=== PATIENT | male | born 1975 | race Two or more races ===

== ENCOUNTER 2025-02-15 05:00 | Inpatient (IN) | payer OTHER ==
[~2025-02-15] VITALS: Ht 180.3 cm; Wt 160.7 kg
[2025-02-15] VITALS (9 sets, daily range): BP systolic 146–182; BP diastolic 87–106; PULSE 58–87; RESP 12–18; TEMP 98.2–98.9; O2SAT 88–98
--- NOTE | 2025-02-15 05:15 | ED.PDOC ---
Altered Mental Status HPI Comments 49-year-old, morbidly obese male is brought in by ambulance from home for complaint of altered level of consciousness. Per EMS report, patient's spouse called after waking up to patient shaking and speaking incoherently, this morning. He is reported to have last been seen normal, yesterday, after vomiting a few times. Patient has only reported history of unspecified kidney disease. On scene, patient was noncompliant with EMS and had to be restrained. Vitals were noted to have been stable within normal limits. Blood glucose of 201. No further acute symptoms are reported. 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 Past Medical History Past Medical History (Other): Unspecified kidney disease Surgical History: Denies all surgeries Family History Family History: Unknown Social History Smoker: Non-Smoker Alcohol: Denies ETOH Use Drugs: Denies Drug Use Lives In: Home All Other Systems: Reviewed and Negative (Comprehensive systems review obtained and negative except for what is stated in the HPI.) Physical Exam General Appearance: Moderate Distress, Obese HEENT: Normal ENT Inspection, Pharynx Normal, TMs Normal Neck: Full Range of Motion, Non-Tender, Normal, Normal Inspection Respiratory: Chest Non-Tender, Lungs Clear, No Accessory Muscle Use, No Respiratory Distress, Normal Breath Sounds Cardiovascular: No Edema, No JVD, No Murmur, No Gallop, Normal Peripheral Pulses, Regular Rate/Rhythm Breast Exam: Deferred Gastrointestinal: No Organomegaly, Non Tender, No Pulsatile Mass, Normal Bowel Sounds, Soft Genitalia: Deferred Pelvic: Deferred Rectal: Deferred Extremities: No calf tenderness, Normal capillary refill, Normal inspection, Normal range of motion, Non-tender, No pedal edema Musculoskeletal : Apperance: Normal Neurologic: Disoriented, No Motor Deficits, No Sensory Deficits, Other (Confused) Cerebellar Function: NOT DONE Reflexes: NOT DONE Skin: Dry, Normal Color, Warm Peripheral Pulses: 3+ Radial (R), 3+ Radial (L) Lymphatic: No Adenopathy EKG EKG : Pulse Rate (adult): 95 [place]: Normal Cardiac Rhythm: NSR Block: None Hypertrophy: None ST: Normal Was a procedure done? Was a procedure done?: No Differential Diagnosis (ALOC) Differential Diagnosis: Dehydration, Encephalopathy, Sepsis, Hypoxemia, Seizure, CVA, Drug Overdose, ETOH Intoxication, Renal Failure X-Ray, Labs, Meds, VS Vital Signs Date Time Temp Pulse Resp B/P (MAP) Pulse Ox O2 Delivery O2 Flow Rate FiO2 02/15/25 05:15 95 02/15/25 05:06 98.1 97 20 176/118 (137) 94 98.1 02/15/25 05:00 95 Lab Test 02/15/25 05:10 Range/Units White Blood Count 15.3 H 4.4-10.8 10^3/uL Red Blood Count 5.52 4.5-5.90 10^6/uL Hemoglobin 16.2 13.5-17.5 g/dL Hematocrit 47.8 41.0-53.0 % Mean Corpuscular Volume 86.6 80.0-100.0 fL Mean Corpuscular Hemoglobin 29.3 28.0-32.0 pg Mean Corpuscular Hemoglobin Concent 33.9 32.0-36.0 g/dL Red Cell Distribution Width 12.8 11.8-14.3 % Platelet Count 351 140-450 10^3/uL Mean Platelet Volume 7.2 6.9-10.8 fL Neutrophils (%) (Auto) 89.0 H 37.0-80.0 % Lymphocytes (%) (Auto) 3.4 L 10.0-50.0 % Monocytes (%) (Auto) 6.3 0.0-12.0 % Eosinophils (%) (Auto) 0.0 0.0-7.0 % Basophils (%) (Auto) 1.3 0.0-2.0 % Neutrophils # (Auto) 13.7 H 1.6-8.6 10 ^3/uL Lymphocytes # (Auto) 0.5 0.4-5.4 10 ^3/uL Monocytes # (Auto) 1.0 0-1.3 10 ^3/uL Eosinophils # (Auto) 0 0-0.8 10 ^3/uL Basophils # (Auto) 0.2 0-0.2 10 ^3/uL Nucleated Red Blood Cells 0.0 % Prothrombin Time 10.5 9.3-11.8 sec Prothrombin Time INR 0.99 0.9-1.15 Activated Partial Thromboplast Time 25.6 24.5-34.5 SEC Sodium Level 143 136-145 mmol/L Potassium Level 4.1 3.5-5.1 mmol/L Chloride Level 104 98-107 mmol/L Carbon Dioxide Level 24 20-31 mmol/L Anion Gap 15 5-15 Blood Urea Nitrogen 46 H 9-23 mg/dL Creatinine 1.58 H 0.700-1.30 mg/dL Glomerular Filtration Rate Calc 53 >90 mL/min BUN/Creatinine Ratio 29.1 H 10.0-20.0 Serum Glucose 182 H 74-106 mg/dL Lactic Acid Level 4.9 *H 0.4-2.0 mmol/L Calcium Level 10.0 8.7-10.4 mg/dL Total Bilirubin 0.4 0.2-1.0 mg/dL Aspartate Amino Transferase (AST) 18 <34 U/L Alanine Aminotransferase (ALT) 15 7-40 U/L Alkaline Phosphatase 54 46-116 U/L Total Protein 6.6 5.7-8.2 g/dL Albumin 4.0 3.2-4.8 g/dL Current Medications Medications (Trade) Dose Ordered Sig/Violet Route Start Time Stop Time Status Last Admin Sodium Chloride 2,000 ml @ 1,000 mls/hr Q2H ONCE IV 02/15/25 05:15 02/15/25 07:14 02/15/25 05:48 Patient alert. WBC elevated. Possible sepsis. Hemoglobin within normal limits. Establish intravenous access. Was given fluids. Sepsis protocol. Lactic acid elevated. Was given antibiotics. Blood pressure slightly elevated pain Will monitor possibly will need labetalol. Explained to the patient. Continue monitoring. Time of 1ST Reevaluation: 05:30 Reevaluation 1ST: Unchanged Patient Education/Counseling: Other (Patient's altered) Family Education/Counseling: No Family Present Additional Information Previous visits reviewed: N/A The following tests were ordered, and results were reviewed by me: EKG, CT head without contrast, lactic acid reflux, blood culture, Accu-Chek, chest x-ray, UA, PT PTT, CMP, CBC Additional Information was gathered from interviewing the following independent historians: EMS I reviewed and agreed with the following test results read by other providers: CT head without contrast and chest x-ray I discussed treatment and results with medical personnel SEPSIS Sepsis Screen Physician Orders Urinalysis (02/15/25 05:04) Chest Portable (02/15/25 05:04) Accucheck (02/15/25 05:04) Blood Culture (02/15/25 05:04) Cefepime 1gm/ 50ml (Maxipime 1gm/50ml) (02/15/25 06:00) Sodium Chloride 0.9% (02/15/25 05:15) Head Without Contrast (02/15/25 05:06) Cefepime 1gm/ 50ml (Maxipime 1gm/50ml) (02/15/25 05:30) Vital Signs Date Time Temp Pulse Resp B/P (MAP) Pulse Ox O2 Delivery O2 Flow Rate FiO2 02/15/25 05:15 95 02/15/25 05:06 98.1 97 20 176/118 (137) 94 98.1 02/15/25 05:00 95 Laboratory Tests Test 02/15/25 05:10 Lactic Acid Level 4.9 mmol/L (0.4-2.0) *H White Blood Count 15.3 10^3/uL (4.4-10.8) H Medications Medications Dose Ordered Sig/Violet Route Start Time Stop Time Status Last Admin Dose Admin Sodium Chloride 2,000 ml @ 1,000 mls/hr Q2H ONCE IV 02/15/25 05:15 02/15/25 07:14 02/15/25 05:48 Departure 1 Departure Time of Disposition: 06:41 Impression: Primary Impression: Metabolic encephalopathy Additional Impression: Sepsis Qualified Codes: A41.9 - Sepsis, unspecified organism Disposition: ADMITTED INPATIENT Admit to: Med Surg Condition: Guarded Critical Care Note Critical Care Time?: Yes (90 min-critical care time only) Critical care comment: Continue to be altered Stability Stability form required: No Heart Score Heart Score: Heart Score Response (Comments) Value History N/A 0 EKG N/A 0 Age N/A 0 Risk Factors N/A 0 Troponin N/A 0 Total 0 I personally scribed for LISA BROWN MD ([email or web address]) on 02/15/25 at 05:15. Electronically submitted by Devin Smith [email or web address]). LISA BROWN MD Feb 15, 2025 05:15 MICHELLE TRACEY MD Feb 15, 2025 06:42
[2025-02-15] MEDS: SODIUM CHLORIDE 0.9% 2,000 ML IV ONE (05:48)
--- NOTE | 2025-02-15 05:57 | DVH ---
EXAM: XY CHEST PORTABLE HISTORY: ams COMPARISON: None TECHNIQUE: Portable upright AP view of the chest was performed. FINDINGS: There is mild central interstitial prominence. No pneumothorax or consolidative infiltrates. The hear t is not enlarged. IMPRESSION: The central interstitial prominence may be due to reactive airways disease or mild CHF. The lungs ar e otherwise clear.
--- NOTE | 2025-02-15 05:59 | DVH ---
EXAM: CT Head Without Intravenous Contrast CLINICAL INDICATION: ams TECHNIQUE: Axial computed tomography images of the head/brain without intravenous contrast. This CT exam was performed using one or more of the following dose reduction techniques: automated exposure control, adjustment of the mA and/or kV according to patient size, and/or use of iterative reconstru ction technique. CONTRAST: COMPARISON: No relevant prior studies available. FINDINGS: BRAIN AND EXTRA-AXIAL SPACES: No acute intracranial hemorrhage, midline shift or mass effect. If sy mptoms persist, further evaluation with MRI is recommended. No significant white matter disease. BONES/JOINTS: Unremarkable. No acute fracture. SOFT TISSUES: Unremarkable. SINUSES: Unremarkable as visualized. No acute sinusitis. MASTOID AIR CELLS: Unremarkable as visualized. No mastoid effusion. OTHER FINDINGS: Comparison None. IMPRESSION: No acute intracranial hemorrhage, midline shift or mass effect. If symptoms persist, further evaluat ion with MRI is recommended. HS:Y
[2025-02-15 06:06] LABS: Alanine Aminotransferase 15 U/L (7-40); Alkaline Phosphatase 54 U/L (46-116); Anion Gap 15 (5-15); Aspartate Aminotransferase 18 U/L (<34); BUN/Creatinine Ratio 29.1 (10.0-20.0); Basophils # (auto) 0.2 10 ^3/uL (0-0.2); Basophils % (auto) 1.3 % (0.0-2.0); Carbon Dioxide 24 mmol/L (20-31); Chloride 104 mmol/L (98-107); Eosinophils # (auto) 0 10 ^3/uL (0-0.8); Hematocrit 47.8 % (41.0-53.0); Hemoglobin 16.2 g/dL (13.5-17.5); Lymphocytes # (auto) 0.5 10 ^3/uL (0.4-5.4); Lymphocytes % (auto) 3.4 % (10.0-50.0); Mean Corpuscular Hemoglobin 29.3 pg (28.0-32.0); Mean Corpuscular Hgb Conc. 33.9 g/dL (32.0-36.0); Mean Corpuscular Volume 86.6 fL (80.0-100.0); Monocytes % (auto) 6.3 % (0.0-12.0); Neutrophils # (auto) 13.7 10 ^3/uL (1.6-8.6); Platelet Count (auto) 351 10^3/uL (140-450); Potassium 4.1 mmol/L (3.5-5.1); Red Blood Cells 5.52 10^6/uL (4.5-5.90); Red Cell Distribution Width 12.8 % (11.8-14.3); Sodium 143 mmol/L (136-145); Total Protein 6.6 g/dL (5.7-8.2); White Blood Cell 15.3 10^3/uL (4.4-10.8)
[2025-02-15 06:07] LABS: Bilirubin, Total 0.4 mg/dL (0.2-1.0)
[2025-02-15 06:13] LABS: INR 0.99 (0.9-1.15); Partial Thromboplastin Time 25.6 SEC (24.5-34.5); Prothrombin Time 10.5 sec (9.3-11.8)
--- NOTE | 2025-02-15 06:18 | ECG ---
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
[2025-02-15 06:23] LABS: Blood Urea Nitrogen 46 mg/dL (9-23); Glucose 182 mg/dL (74-106)
[2025-02-15 06:25] LABS: Lactic Acid w/Reflex 4.9 mmol/L (0.4-2.0)
[2025-02-15] MEDS: VANCOMYCIN 1GM/200ML PM 200 ML IV ONE (06:40)
[2025-02-15] MEDS: SODIUM CHLORIDE 0.9% 1,000 ML IV ONE ×3 (06:58→07:25)
[2025-02-15] MEDS: LABETALOL HCL 20 MG/4 ML VL IV ONE (07:16)
--- NOTE | 2025-02-15 09:05 | DVHINCON2 ---
Date of service: Feb 15, [address] Watkins Reason for Consultation Seizure History of Present Illness Mr. Encarnacion is a 49 years old left-handed gentleman with a history of chronic kidney failure, obesity, he was brought to the [facility] on 02/15/2025 with a chief company of seizure activity. At this time, he is alert, fully oriented, but he remembers going to bed and the next memory was waking up in the emergency room,, the history is obtained from his , his son is in the room with him Earlier this morning, his was awakened by bed shaking and found the patient was shaking all over body for 30-40 seconds, with blood in the mouth, and he did not wake up until the ambulance came over, and he was very confused, combative on waking up. There was no incontinence. He has never had similar problem before, has no spells confusion, symptoms olfactory/gustatory hallucination, he has a preemie, but he did not have major intracranial problem in her stage. He has no history of traumatic brain injury, intracranial infection, stroke, has no family history of seizure disorder After his doctor change his kidney medication, the patient has been having nausea, vomiting for 2-3 days, and he could not keep anything down. He keeps drinking water but we will through back in about 1 hour, he did not eat any food on 02/14/25. His more in the last few days His long history of very loud snoring, the family reports symptoms suggestive of sleep apnea, he reports he sleeps not always refreshing, he is tired in the afternoon, his Carol sleep apnea, and his family thinks he has sleep apnea, he has not had sleep evaluation yet WBC/HB/PLT/MCV, 02/15/2025: 15.3/16.2/351/86.6 BUN/CR, 02/15/2025: 46/1.58 Liver function tests, 02/15/2025: Unremarkable Lactic acid, 02/15/2025: 4.9, 2.9, CT head, 02/15/2025: No acute intracranial hemorrhage, midline shift or mass eff ect. If symptoms persist, further evaluation with MRI is recommended. Past Medical History Kidney disease, obesity Past Surgical History No major surgeries Family History Parkinson's disease, hepatitis-C Social History He was a tobacco smoke, but no history of drug or alcohol abuse Allergies: Coded Allergies: NO KNOWN ALLERGIES (Unverified , 02/15/25) Home Meds Reported Medications Atorvastatin Calcium (ATORVASTATIN CALCIUM) 20 Mg Tab, 1 TAB PO HS 02/15/25 Metolazone (Metolazone) 10 Mg Tab, 1 TAB PO DAILY 02/15/25 Prednisone (Prednisone) 5 Mg Tab, 1 TAB PO DAILY 02/15/25 Tacrolimus (Tacrolimus) 5 Mg Cap, 1 CAP PO BID 02/15/25 Bumetanide (Bumetanide) 2 Mg Tab, 1 TAB PO DAILY 02/15/25 Current Medications Current Medications Medications (Trade) Dose Ordered Sig/Violet Route PRN Reason Start Time Stop Time Status Last Admin Cefepime HCl 50 ml @ 12.5 mls/hr Q8HR IV 02/15/25 14:00 Review of Systems As above, the other systems are negative Vital Signs Vital Signs Date Time Temp Pulse Resp B/P (MAP) Pulse Ox O2 Delivery O2 Flow Rate FiO2 02/15/25 08:38 75 194/107 02/15/25 06:51 12 98 02/15/25 05:35 Room Air* 0 21 02/15/25 05:35 98.4 98.4 Physical Exam GENERAL EXAM: General: the patient is well developed and nourished. No acute distress. HEENT: Normocephalic, neck is supple, no carotid bruits. No mass. RESPIRATORY: Normal respiratory effort with symmetrical lung expansion. Lungs clear to auscultation. CARDIOVASCULAR: Regular rate and rhythm with no murmurs. S1, S2. ABDOMEN: Soft, nontender, normal bowel sound NEUROLOGICAL: MENTAL STATUS: Awake and alert. Oriented to person, place, time and general circumstances. Able to give personal history. SPEECH, LANGUAGE, HIGHER CORTICAL FUNCTION: no aphasia or dysathria. CRANIAL NERVES: #2: Intact visual watt to confrontation. The optic discs were sharp #3,4,6: Pupils are equal, round and reactive. EOMs full and conjugate. No nystagmus. #5: Facial sensation intact in all three divisions bilaterally. Mandibular strength intact. #7: Facial muscles symmetrical and strength intact. #8: Hearing grossly normal to voice. #9,10: Uvula and soft palate rise in the midline. Swallow and voice are normal. #11: Trapezius and sternomastoid strength intact bilaterally. #12: Tongue midline. No fasciculations or atrophy. SENSATION: Sensation to touch and pinprick is normal. MOTOR: Normal tone in the upper and lower extremity. Normal muscle bulk. No fasciculations. No abnormal movements or posturing. Muscle strength of the major groups in the upper extremities is 5/5. Muscle strength of the major groups in the lower extremities is 5/5. REFLEXES: Deep tendon reflexes normal and symmetrical. No pathological reflexes. CEREBELLAR/COORDINATION: Finger to noseis normal bilaterally. GAIT/STATION: deferred. Labs/Diagnostic Data Labs Test 02/15/25 08:47 02/15/25 07:06 02/15/25 05:10 Range/Units POC Glucose 123 H 70-106 mg/dl Lactic Acid Level 2.9 *H 0.4-2.0 mmol/L White Blood Count 15.3 H 4.4-10.8 10^3/uL Red Blood Count 5.52 4.5-5.90 10^6/uL Hemoglobin 16.2 13.5-17.5 g/dL Hematocrit 47.8 41.0-53.0 % Mean Corpuscular Volume 86.6 80.0-100.0 fL Mean Corpuscular Hemoglobin 29.3 28.0-32.0 pg Mean Corpuscular Hemoglobin Concent 33.9 32.0-36.0 g/dL Red Cell Distribution Width 12.8 11.8-14.3 % Platelet Count 351 140-450 10^3/uL Mean Platelet Volume 7.2 6.9-10.8 fL Neutrophils (%) (Auto) 89.0 H 37.0-80.0 % Lymphocytes (%) (Auto) 3.4 L 10.0-50.0 % Monocytes (%) (Auto) 6.3 0.0-12.0 % Eosinophils (%) (Auto) 0.0 0.0-7.0 % Basophils (%) (Auto) 1.3 0.0-2.0 % Neutrophils # (Auto) 13.7 H 1.6-8.6 10 ^3/uL Lymphocytes # (Auto) 0.5 0.4-5.4 10 ^3/uL Monocytes # (Auto) 1.0 0-1.3 10 ^3/uL Eosinophils # (Auto) 0 0-0.8 10 ^3/uL Basophils # (Auto) 0.2 0-0.2 10 ^3/uL Nucleated Red Blood Cells 0.0 % Prothrombin Time 10.5 9.3-11.8 sec Prothrombin Time INR 0.99 0.9-1.15 Activated Partial Thromboplast Time 25.6 24.5-34.5 SEC Sodium Level 143 136-145 mmol/L Potassium Level 4.1 3.5-5.1 mmol/L Chloride Level 104 98-107 mmol/L Carbon Dioxide Level 24 20-31 mmol/L Anion Gap 15 5-15 Blood Urea Nitrogen 46 H 9-23 mg/dL Creatinine 1.58 H 0.700-1.30 mg/dL Glomerular Filtration Rate Calc 53 >90 mL/min BUN/Creatinine Ratio 29.1 H 10.0-20.0 Serum Glucose 182 H 74-106 mg/dL Calcium Level 10.0 8.7-10.4 mg/dL Total Bilirubin 0.4 0.2-1.0 mg/dL Aspartate Amino Transferase (AST) 18 <34 U/L Alanine Aminotransferase (ALT) 15 7-40 U/L Alkaline Phosphatase 54 46-116 U/L B-Type Natriuretic Peptide 133.67 0-100 pg/mL Total Protein 6.6 5.7-8.2 g/dL Albumin 4.0 3.2-4.8 g/dL Assessment New onset generalized tonic-clonic seizure ? Secondary to nausea, vomiting/dehydration Obesity Sleep-related breathing disorder Plan/Recommendation Monitoring Supportive treatment Telemetry EEG MRI brain scan Ativan for seizure breakthrough Consider preventive seizure treatment if indicated later A trial of APAP in the hospital Weight control Further address his sleep-related breathing disorder as outpatient Has been advised not to drive and he is cleared DMV report in the chart Progress: Poor This medical document was created using an electronic medical record system with [employer] dictation system. Although this document has been carefully reviewed, there may still be some phonetic and typographical errors. These areas are purely typographical due to imperfections of the software programs, and do not reflect any compromise in the patient's medical care. Plan discussed with: Patient, Spouse, Son, Other JOHAN VAZQUEZ MD Feb 15, 2025 09:05
[2025-02-15] MEDS: CEFEPIME 1GM/ 50ML 50 ML IV ONE (09:10)
[2025-02-15] MEDS ORDERED: TACR5CAP3 PO (09:43)
[2025-02-15] MEDS ORDERED: METO10TA7 PO (09:43)
[2025-02-15] MEDS ORDERED: PRE5T PO (09:43)
[2025-02-15] MEDS ORDERED: ATOR20TA50 PO (09:43)
[2025-02-15] MEDS ORDERED: BUME2TAB5 PO (09:43)
[2025-02-15 09:45] LABS: Urine Bacteria FEW /hpf (None Seen); Urine Blood 2+ /uL (Negative); Urine Clarity Clear (Clear); Urine Color Light-Yellow (Yellow); Urine Hyaline Cast FEW /lpf (0 - 2); Urine Mucus FEW (None Seen); Urine Protein, UAD 3+ (Negative); Urine Specific Gravity 1.025 (1.001-1.035); Urine Squamous Epithelial Cell FEW /hpf (<5); Urine Urobilinogen Normal (Negative); Urine WBC 2 /HPF (0-3)
[2025-02-15] MEDS ORDERED: NITROGLYCERIN 0.4 MG SL TAB SL PRN (09:45)
[2025-02-15] MEDS ORDERED: DOCUSATE SOD 100 MG CAP PO PRN (09:45)
[2025-02-15] MEDS ORDERED: MORPHINE SULFATE INJ 2 MG/ml SYRG IV PRN (09:45)
[2025-02-15] MEDS: amLODIPine BESYLATE 5 MG TAB PO SCH (10:00)
--- NOTE | 2025-02-15 10:05 | DVHHP2 ---
History of Present Illness Reason for Visit: [facility] History of Present Illness Giovanni Oakley is a 49-year-old male with past medical history of membranous nephropathy, who was brought to the hospital by EMS after having a seizure. Per the patient's , she was awoken up about 0200 to him having a seizure in bed. He has no history of seizures. She states after the seizure was over he was confused, not able to speak correctly, and combative with EMS. At my time of assessment he is alert and oriented, and does not remember the event. He does have trauma to his tongue and some dried blood on the side of his mouth from the event. Patient states his special procedures nurse recently changed his medications and he has been nauseated and vomiting for the past 3 days. He contributes it to his new medications. Patient's blood pressure is uncontrolled while in the ER. He states his blood pressure has never been a problem and he dose not take any medications for it at home, but he was told his new medications could make his blood pressure increase. Recently, the patient was seen at a urgent care due to right foot swelling. He was given an antibiotic, pain medications, and his prednisone was increased. The swelling, and redness in his foot has almost resolved, he has almost completed his course of medications. Denies any sick contact, chest pain, cough, fever, shortness of breath, or diarrhea. Renal/: Chronic renal insuff Lives: with Family Domestic Violence: Neg Review of Systems Constitutional: No: Fever, Chills, Sweats, Weakness, Malaise, Other Eyes: No: Pain, Vision change, Conjunctivae inflammation, Eyelid inflammation, Other, Redness ENT: No: Ear pain, Ear discharge, Nose pain, Nose discharge, Nose congestion, Mouth pain, Mouth swelling, Throat pain, Throat swelling, Other Respiratory: No: Cough, Dry, Shortness of breath, SOB with excertion, Wheezing, Hemoptysis, Pleuritic Pain, Sputum, Wheezing, Other Cardiovascular: No: Chest Pain, Palpitations, Orthopnea, Paroxysmal Noc. Dyspnea, Edema, Lt Headedness, Other Gastrointestinal: No: Nausea, Vomiting, Abdominal Pain, Diarrhea, Constipation, Melena, Hematochezia, Other Genitourinary: No Dysuria, No Frequency, No Incontinence, No Hematuria, No Retention, No Other Musculoskeletal: No: other, neck pain, shoulder pain, arm pain, back pain, hand pain, leg pain, foot pain Skin: No: Rash, Lesions, Jaundice, Bruising, Other Neurological: Weakness, Incoordination, Change in speech, Confusion, Seizures; No: Numbness, Other Allergies: Coded Allergies: NO KNOWN ALLERGIES (Unverified , 02/15/25) Medications Current Medications Medications Dose Ordered Sig/Violet Route Start Time Stop Time Status Last Admin Dose Admin Cefepime HCl 50 ml @ 12.5 mls/hr Q8HR IV 02/15/25 14:00 Exam Vital Signs Vital Signs Date Time Temp Pulse Resp B/P (MAP) Pulse Ox O2 Delivery O2 Flow Rate FiO2 02/15/25 08:38 75 194/107 02/15/25 06:51 12 98 02/15/25 05:35 Room Air* 0 21 02/15/25 05:35 98.4 98.4 General Appearance: Alert, Oriented X3, Cooperative, mild distress HEENT: Atraumatic, PERRLA Respiratory: Clear to auscultation, Normal air movement Cardiovascular: Regular rate, Normal S1, Normal S2, No murmurs Abdominal: Normal bowel sounds, Soft, No tenderness, No hepatospenomegaly Extremities: No clubbing, No cyanosis, Normal pulses, No tenderness/swelling, Other (mild bialteral pedal edema) Skin: No rashes, No breakdown, No significant lesion Neuro: Normal speech, Other (Has not ambulated since having seizure this morning) Psych/Mental Status: Mental status NL, Mood NL Labs/Xrays Labs Test 02/15/25 08:54 02/15/25 08:47 02/15/25 07:06 02/15/25 05:10 Range/Units POC Glucose 123 H 70-106 mg/dl Lactic Acid Level 2.9 *H 0.4-2.0 mmol/L White Blood Count 15.3 H 4.4-10.8 10^3/uL Red Blood Count 5.52 4.5-5.90 10^6/uL Hemoglobin 16.2 13.5-17.5 g/dL Hematocrit 47.8 41.0-53.0 % Mean Corpuscular Volume 86.6 80.0-100.0 fL Mean Corpuscular Hemoglobin 29.3 28.0-32.0 pg Mean Corpuscular Hemoglobin Concent 33.9 32.0-36.0 g/dL Red Cell Distribution Width 12.8 11.8-14.3 % Platelet Count 351 140-450 10^3/uL Mean Platelet Volume 7.2 6.9-10.8 fL Neutrophils (%) (Auto) 89.0 H 37.0-80.0 % Lymphocytes (%) (Auto) 3.4 L 10.0-50.0 % Monocytes (%) (Auto) 6.3 0.0-12.0 % Eosinophils (%) (Auto) 0.0 0.0-7.0 % Basophils (%) (Auto) 1.3 0.0-2.0 % Neutrophils # (Auto) 13.7 H 1.6-8.6 10 ^3/uL Lymphocytes # (Auto) 0.5 0.4-5.4 10 ^3/uL Monocytes # (Auto) 1.0 0-1.3 10 ^3/uL Eosinophils # (Auto) 0 0-0.8 10 ^3/uL Basophils # (Auto) 0.2 0-0.2 10 ^3/uL Nucleated Red Blood Cells 0.0 % Prothrombin Time 10.5 9.3-11.8 sec Prothrombin Time INR 0.99 0.9-1.15 Activated Partial Thromboplast Time 25.6 24.5-34.5 SEC Sodium Level 143 136-145 mmol/L Potassium Level 4.1 3.5-5.1 mmol/L Chloride Level 104 98-107 mmol/L Carbon Dioxide Level 24 20-31 mmol/L Anion Gap 15 5-15 Blood Urea Nitrogen 46 H 9-23 mg/dL Creatinine 1.58 H 0.700-1.30 mg/dL Glomerular Filtration Rate Calc 53 >90 mL/min BUN/Creatinine Ratio 29.1 H 10.0-20.0 Serum Glucose 182 H 74-106 mg/dL Calcium Level 10.0 8.7-10.4 mg/dL Total Bilirubin 0.4 0.2-1.0 mg/dL Aspartate Amino Transferase (AST) 18 <34 U/L Alanine Aminotransferase (ALT) 15 7-40 U/L Alkaline Phosphatase 54 46-116 U/L B-Type Natriuretic Peptide 133.67 0-100 pg/mL Total Protein 6.6 5.7-8.2 g/dL Albumin 4.0 3.2-4.8 g/dL EXAM: XY CHEST PORTABLE FINDINGS: There is mild central interstitial prominence. No pneumothorax or consolidative infiltrates. The heart is not enlarged. IMPRESSION: The central interstitial prominence may be due to reactive airways disease or mild CHF. The lungs are otherwise clear. EXAM: CT Head Without Intravenous Contrast FINDINGS: BRAIN AND EXTRA-AXIAL SPACES: No acute intracranial hemorrhage, midline shift or mass effect. If symptoms persist, further evaluation with MRI is recommended. No significant white matter disease. BONES/JOINTS: Unremarkable. No acute fracture. SOFT TISSUES: Unremarkable. SINUSES: Unremarkable as visualized. No acute sinusitis. MASTOID AIR CELLS: Unremarkable as visualized. No mastoid effusion. OTHER FINDINGS: Comparison None. IMPRESSION: No acute intracranial hemorrhage, midline shift or mass effect. If symptoms persist, further evaluation with MRI is recommended. Assessment/Plan Assessment/Plan Assessment: Sepsis, Seizure, new onset, Metabolic encephalopathy, Lactic acidosis, Hyperglycemia, Uncontrolled hypertension, membranous nephropathy, Plan: Admit to Tele, Neurology consult, Seizure precautions, A1c, IV antibiotics, IV hydration, Start antihypertensives, Home medications reconciled, Plan discussed with: Patient, Spouse, Daughter, Son My Orders Orders - DENNY ARCHIBALD [employer] Procedure Category Date Status Time Lactic Acid W/ Reflex LAB 02/15/25 Logged Order 10:00 * Neurology Consult CONS 02/15/25 Transmitted 08:26 Admit ADMIT 02/15/25 Transmitted 09:40 Code Status CODE 02/15/25 Transmitted 09:40 Renal DIET 02/15/25 Transmitted Standard(2gna,3gk,Lopho) Lunch Hydrocodone-Acet PHA 02/15/25 Transmitted 5/325mg Tab ([place] 09:45 Ondansetron Hcl PHA 02/15/25 Transmitted (Zofran) 09:45 Docusate Sodium PHA 02/15/25 Transmitted Capsule (Colace 09:45 Complete Blood Count LAB 02/16/25 Verified 04:00 Comprehensive LAB 02/16/25 Verified Metabolic Panel 04:00 Condition: Serious RJA 02/15/25 Transmitted 09:40 Acetaminophen Tablet PHA 02/15/25 Transmitted (Tylenol Tablet) 09:45 Nitroglycerin PHA 02/15/25 Transmitted Sublingual (Ntrostat 09:45 Morphine Sulfate PHA 02/15/25 Transmitted Injection 09:45 Stat Ekg For Chest RAJ 02/15/25 Transmitted Pain 09:40 Notify Md Of Changes RAJ 02/15/25 Transmitted From Base 09:40 Gate Watchman For [facility] 02/15/25 Transmitted 24 Hours 09:40 Emergency Dysrhythmia [facility] 02/15/25 Transmitted Protocol 09:40 Rhythm Strips Once [facility] 02/15/25 Transmitted Every Shift 09:40 Oxygen By Nasal RT 02/15/25 Transmitted Cannula 09:40 Seizure Precautions [facility] 02/15/[address] 09:40 Atorvastatin (Lipitor) PHA 02/15/25 Transmitted 22:00 Prednisone Tablet PHA 02/15/25 Transmitted 10:00 (Nf) Bumetanide PHA 02/15/25 Transmitted 10:00 (Nf) Metolazone PHA 02/15/25 Transmitted 10:00 (Nf) Tacrolimus PHA 02/15/25 Transmitted 10:00 Date of Service: Feb 15, 2025 Billing Provider: DENNY ARCHIBALD Common Visit Codes: [id number] INP/OBS CARE (MOD) DENNY ARCHIBALD Feb 15, 2025 10:05
[2025-02-15] MEDS ORDERED: METOCLOPRAMIDE HCL 5MG/ml INJ 2ml VIAL IV PRN (10:15)
[2025-02-15] MEDS ORDERED: VANCOMYCIN PER PHARMACY 0 MG IV SCH (10:15)
[2025-02-15] MEDS: amLODIPine BESYLATE 5 MG TAB PO ONE (10:20)
[2025-02-15] MEDS ORDERED: LORazepam 2MG/ML-1ML VIAL IV PRN (10:30)
[2025-02-15] MEDS: ONDANSETRON HCL 4 MG/2 ML VIAL IV PRN (10:59)
[2025-02-15] MEDS: predniSONE 5 MG TAB PO SCH (11:05)
[2025-02-15] MEDS: TACROLIMUS 1 MG CAP PO SCH (11:48)
[2025-02-15] MEDS: ACETAMINOPHEN 325 MG TAB PO PRN (13:28)
[2025-02-15] MEDS: CEFEPIME 1GM/ 50ML 50 ML IV SCH (13:58)
--- NOTE | 2025-02-15 15:22 | DVH ---
PROCEDURE: MRI BRAIN HEAD WO CONTRAST Indication: sz COMPARISON: 02/15/2025 TECHNIQUE: Multiplanar multisequence images of the brain are obtained. FINDINGS: There is increased FLAIR and T2 signal within the bilateral posterior parietal / occipital lobes exte nding to the cortices. The ventricles are midline and normal in size. The cisterns are patent. Normal intracranial flow voids are preserved. No abnormal susceptibility signal. m mastoids well pneumatized. Left maxillary sinus mucosal retention cysts / polyps measuring 2.7 cm. The visualized orbits are unremarkable. IMPRESSION: Increased T2 and FLAIR signal within the bilateral posterior parietal , occipital lobes which is like ly secondary toPRES/ posterior reversible encephalopathy syndrome. Other considerations include venou s sinus thromboses, ischemia, other inflammatory/ infectious etiologies.
--- NOTE | 2025-02-15 18:26 | DVHINCON2 ---
Date of service: Feb 15, [address] 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 Patients [employer]s Distiller is Dr. Olivia, and recently he was started on prograf. He was initially treated in [place] 16 years ago with cytoxan, and cyclosporine, he was in remission all these years, but a year ago he noticed getting edematous again. labs outpatient recently Cr baseline ~ 1.0 mg/dl, and UACR 6.7 g/g. In ER patient is hypertensive in 170s mmHg. Labs showed Cr 1.58 mg/dl, lactic acid 4.9, and WBC 15. MRI brain consistent with PRES. Nephrology consulted for TOREY on CKD Allergies: Coded Allergies: NO KNOWN ALLERGIES (Unverified , 02/15/25) Home Meds Reported Medications Atorvastatin Calcium (ATORVASTATIN CALCIUM) 20 Mg Tab, 1 TAB PO HS 02/15/25 Metolazone (Metolazone) 10 Mg Tab, 1 TAB PO DAILY 02/15/25 Prednisone (Prednisone) 5 Mg Tab, 1 TAB PO DAILY 02/15/25 Tacrolimus (Tacrolimus) 5 Mg Cap, 1 CAP PO BID 02/15/25 Bumetanide (Bumetanide) 2 Mg Tab, 1 TAB PO DAILY 02/15/25 Current Medications Current Medications Medications (Trade) Dose Ordered Sig/Violet Route PRN Reason Start Time Stop Time Status Last Admin Cefepime HCl 50 ml @ 12.5 mls/hr Q8HR IV 02/15/25 14:00 02/15/25 13:58 Acetaminophen/ Hydrocodone Bitart ([place] 5/325MG Tab) 1 tab Q4HP PRN PO MODERATE PAIN (4-6 PAIN SCALE) 02/15/25 09:45 Ondansetron HCl (Zofran) 4 mg Q4HP PRN IV NAUSEA / VOMITING 02/15/25 09:45 02/15/25 18:57 Docusate Sodium (Colace Capsule) 100 mg BIDPRN PRN PO FOR CONSTIPATION 02/15/25 09:45 Acetaminophen (Tylenol Tablet) 650 mg Q6HP PRN PO PAIN SCALE 1-3 OR TEMP>100.4 02/15/25 09:45 02/15/25 13:28 Nitroglycerin (Ntrostat Sublingual) 0.4 mg Q5MINP PRN SL FOR CHEST PAIN 02/15/25 09:45 Morphine Sulfate 2 mg Q30M PRN IV FOR CHEST PAIN 02/15/25 09:45 Atorvastatin Calcium (Lipitor) 20 mg HS PO 02/15/25 22:00 Prednisone 5 mg DAILY PO 02/15/25 10:00 02/15/25 11:05 Bumetanide (Bumex Tablet) 2 mg DAILY PO 02/16/25 10:00 Metolazone (Zaroxolyn) 10 mg DAILY PO 02/16/25 10:28 Tacrolimus (Prograf) 5 mg BID PO 02/15/25 10:00 02/15/25 18:47 DC 02/15/25 11:48 Amlodipine Besylate (Norvasc Tablet) 10 mg DAILY PO 02/15/25 10:00 Ceftriaxone Sodium 50 ml @ 100 mls/hr DAILY@09 IV 02/16/25 09:00 02/15/25 10:33 DC Vancomycin HCl 0 ml @ 0 mls/hr UD IV 02/15/25 10:15 Metoclopramide HCl (Reglan Injection) 10 mg Q8HPRN PRN IV breakthrough NAUSEA / VOMITING 02/15/25 10:15 Lorazepam (Ativan Inj) 1 mg ONCE PRN IV MRI 02/15/25 10:30 Review of Systems as per HPI, all other systems were reviewed and are negative H&P Exam Vital Signs/I&O Vital Sign Date Time Temp Pulse Resp B/P (MAP) Pulse Ox O2 Delivery O2 Flow Rate FiO2 02/15/25 18:03 98 Nasal Cannula 2.0 02/15/25 18:03 28 02/15/25 18:00 76 17 146/93 (110) 02/15/25 16:00 98.5 98.5 Intake and Output 02/14/25 02/15/25 19:00 07:00 Intake Total 1000 ml Balance 1000 ml Intake IV Total 1000 ml Physical Exam Gen: NAD, AAOx3 HEENT: NC,AT Lungs: CTA b/l Cardiac:RRR Abd: soft, no distention Ext: + 1 edema Neuro: no focal deficits Labs/Diagnostic Data Labs/Diagnostic Data Laboratory Tests Test 02/15/25 10:32 02/15/25 08:54 02/15/25 08:47 02/15/25 07:06 Range/Units Lactic Acid Level 1.8 2.9 *H 0.4-2.0 mmol/L Urine Color Light-yellow Yellow Urine Clarity Clear Clear Urine pH 6.0 5.0-9.0 Urine Specific [place] 1.025 1.001-1.035 Urine Protein 3+ H Negative Urine Ketones Negative Negative Urine Blood 2+ H Negative /uL Urine Nitrite Negative Negative Urine Bilirubin Negative Negative Urine Urobilinogen Normal Negative mg/dL Urine Leukocyte Esterase Negative Negative /uL Urine RBC 3 0 - 3 /hpf Urine Microscopic WBC 2 0-3 /HPF Urine Squamous Epithelial Cells Few <5 /hpf Urine Bacteria Few H None Seen /hpf Urine Hyaline Casts Few 0 - 2 /lpf Urine Mucus Few None Seen Urine Glucose Trace Normal mg/dL POC Glucose 123 H 70-106 mg/dl Test 02/15/25 06:38 02/15/25 05:10 Range/Units POC Glucose 157 H 70-106 mg/dl White Blood Count 15.3 H 4.4-10.8 10^3/uL Red Blood Count 5.52 4.5-5.90 10^6/uL Hemoglobin 16.2 13.5-17.5 g/dL Hematocrit 47.8 41.0-53.0 % Mean Corpuscular Volume 86.6 80.0-100.0 fL Mean Corpuscular Hemoglobin 29.3 28.0-32.0 pg Mean Corpuscular Hemoglobin Concent 33.9 32.0-36.0 g/dL Red Cell Distribution Width 12.8 11.8-14.3 % Platelet Count 351 140-450 10^3/uL Mean Platelet Volume 7.2 6.9-10.8 fL Neutrophils (%) (Auto) 89.0 H 37.0-80.0 % Lymphocytes (%) (Auto) 3.4 L 10.0-50.0 % Monocytes (%) (Auto) 6.3 0.0-12.0 % Eosinophils (%) (Auto) 0.0 0.0-7.0 % Basophils (%) (Auto) 1.3 0.0-2.0 % Neutrophils # (Auto) 13.7 H 1.6-8.6 10 ^3/uL Lymphocytes # (Auto) 0.5 0.4-5.4 10 ^3/uL Monocytes # (Auto) 1.0 0-1.3 10 ^3/uL Eosinophils # (Auto) 0 0-0.8 10 ^3/uL Basophils # (Auto) 0.2 0-0.2 10 ^3/uL Nucleated Red Blood Cells 0.0 % Prothrombin Time 10.5 9.3-11.8 sec Prothrombin Time INR 0.99 0.9-1.15 Activated Partial Thromboplast Time 25.6 24.5-34.5 SEC Sodium Level 143 136-145 mmol/L Potassium Level 4.1 3.5-5.1 mmol/L Chloride Level 104 98-107 mmol/L Carbon Dioxide Level 24 20-31 mmol/L Anion Gap 15 5-15 Blood Urea Nitrogen 46 H 9-23 mg/dL Creatinine 1.58 H 0.700-1.30 mg/dL Glomerular Filtration Rate Calc 53 >90 mL/min BUN/Creatinine Ratio 29.1 H 10.0-20.0 Serum Glucose 182 H 74-106 mg/dL Hemoglobin A1c 5.5 <5.7 % A1C Lactic Acid Level 4.9 *H 0.4-2.0 mmol/L Calcium Level 10.0 8.7-10.4 mg/dL Total Bilirubin 0.4 0.2-1.0 mg/dL Aspartate Amino Transferase (AST) 18 <34 U/L Alanine Aminotransferase (ALT) 15 7-40 U/L Alkaline Phosphatase 54 46-116 U/L B-Type Natriuretic Peptide 133.67 0-100 pg/mL Total Protein 6.6 5.7-8.2 g/dL Albumin 4.0 3.2-4.8 g/dL Assessment Assessment: TOREY, pre-renal Nephrotic syndrome secondary to Membranous nephropathy CKD stage I (Baseline Cr ~ 1.0 mg/dl) new onset seizure, MRI consistent with PRES, this may have been induced by uncontrolled hypertension from recently started Tacrolimus Lactic acidosis, resolved Leukocytosis Hyperlipidemia Plan: Continue Bumex 2 mg PO daily DC Metolazone given improved edema Hold Tacrolimus. trough level is likely elevated give clinical presentation. will obtain trough level with AM labs. however he didnt take it the past few days due to nausea/vomiting. but only took one dose this AM in the hospital. He will need alternative immunosuppression Continue Amlodipine 10 mg daily patient will need optimal blood pressure control. will start patient on Metoprolol 50 mg PO BID Neurology consult Continue Lipitor on Empirical IV antibiotics per primary team Plan discussed with: Patient MADIHA VALLECILLO MD Feb 15, 2025 18:26
[2025-02-15] MEDS: ATORVASTATIN 20 MG TAB PO SCH (20:55)
[2025-02-15] MEDS: METOPROLOL TARTRATE 25 MG TAB PO SCH (21:07)
[2025-02-16] VITALS (9 sets, daily range): BP systolic 120–159; BP diastolic 67–96; PULSE 60–66; RESP 15–19; TEMP 97.4–98.2; O2SAT 93–97
[2025-02-16 07:54] LABS: Basophils # (auto) 0 10 ^3/uL (0-0.2); Basophils % (auto) 0.3 % (0.0-2.0); Eosinophils # (auto) 0.1 10 ^3/uL (0-0.8); Eosinophils % (auto) 1.7 % (0.0-7.0); Hematocrit 39.5 % (41.0-53.0); Hemoglobin 13.8 g/dL (13.5-17.5); Lymphocytes # (auto) 1.8 10 ^3/uL (0.4-5.4); Lymphocytes % (auto) 20.5 % (10.0-50.0); Mean Corpuscular Hemoglobin 30.1 pg (28.0-32.0); Mean Corpuscular Hgb Conc. 34.8 g/dL (32.0-36.0); Mean Corpuscular Volume 86.6 fL (80.0-100.0); Monocytes # (auto) 0.8 10 ^3/uL (0-1.3); Monocytes % (auto) 9.9 % (0.0-12.0); Neutrophils # (auto) 5.8 10 ^3/uL (1.6-8.6); Neutrophils % (auto) 67.6 % (37.0-80.0); Nucleated Red Blood Cells % 0.1 %; Platelet Count (auto) 276 10^3/uL (140-450); Red Blood Cells 4.57 10^6/uL (4.5-5.90); Red Cell Distribution Width 12.9 % (11.8-14.3); White Blood Cell 8.6 10^3/uL (4.4-10.8)
[2025-02-16 08:28] LABS: Alanine Aminotransferase 11 U/L (7-40); Albumin 3.6 g/dL (3.2-4.8); Alkaline Phosphatase 41 U/L (46-116); Aspartate Aminotransferase 13 U/L (<34); Blood Urea Nitrogen 44 mg/dL (9-23); Calcium 9.5 mg/dL (8.7-10.4); Chloride 108 mmol/L (98-107); Glucose 94 mg/dL (74-106); Total Protein 5.7 g/dL (5.7-8.2)
[2025-02-16 08:29] LABS: Bilirubin, Total 0.4 mg/dL (0.2-1.0)
[2025-02-16 08:47] LABS: Sodium 143 mmol/L (136-145)
[2025-02-16 08:48] LABS: Anion Gap 9 (5-15); Carbon Dioxide 26 mmol/L (20-31)
[2025-02-16] MEDS ORDERED: cefTRIAXone 1GM/50ML D5W 50 ML IV SCH (09:00)
[2025-02-16] MEDS ORDERED: VANCOMYCIN 1GM/200ML PM 200 ML IV ONE (10:00)
[2025-02-16] MEDS ORDERED: metOLazone 5 MG TAB PO SCH (10:28)
[2025-02-16] MEDS: BUMETANIDE 1 MG TAB PO SCH (10:36)
[2025-02-16] MEDS: VANCOMYCIN 1GM/200ML PM 200 ML IV ONE (13:28)
--- NOTE | 2025-02-16 17:40 | DVHPN2 ---
Progress Note - Dictate Date Seen: Feb 16, 2025 Medical Necessity Reason Pt with a Central, PICC or Fol: No Subjective Patient is feeling a lot better, appetite has improved vital signs Vital Sign Date Time Temp Pulse Resp B/P (MAP) Pulse Ox O2 Delivery O2 Flow Rate FiO2 02/16/25 17:00 98.1 60 17 156/93 (114) 97 98.1 02/16/25 16:56 Nasal Cannula* 2 28 Total Intake and Output 02/15/25 02/15/25 02/16/25 15:00 23:00 07:00 Intake Total 3162.5 ml 225.0 ml 1080 ml Balance 3162.5 ml 225.0 ml 1080 ml medications Current Medications Medications Dose Ordered Sig/Violet Route Start Time Stop Time Status Last Admin Dose Admin Cefepime HCl 50 ml @ 12.5 mls/hr Q8HR IV 02/15/25 14:00 02/16/25 06:15 12.5 MLS/HR Acetaminophen/ Hydrocodone Bitart 1 tab Q4HP PRN PO 02/15/25 09:45 Ondansetron HCl 4 mg Q4HP PRN IV 02/15/25 09:45 02/15/25 18:57 4 MG Docusate Sodium 100 mg BIDPRN PRN PO 02/15/25 09:45 Acetaminophen 650 mg Q6HP PRN PO 02/15/25 09:45 02/15/25 13:28 650 MG Nitroglycerin 0.4 mg Q5MINP PRN SL 02/15/25 09:45 Morphine Sulfate 2 mg Q30M PRN IV 02/15/25 09:45 Atorvastatin Calcium 20 mg HS PO 02/15/25 22:00 02/15/25 20:55 20 MG Prednisone 5 mg DAILY PO 02/15/25 10:00 02/16/25 10:37 5 MG Bumetanide 2 mg DAILY PO 02/16/25 10:00 02/16/25 10:36 2 MG Amlodipine Besylate 10 mg DAILY PO 02/15/25 10:00 02/16/25 10:37 10 MG Vancomycin HCl 0 ml @ 0 mls/hr UD IV 02/15/25 10:15 Metoclopramide HCl 10 mg Q8HPRN PRN IV 02/15/25 10:15 Lorazepam 1 mg ONCE PRN IV 02/15/25 10:30 Metoprolol Tartrate 25 mg BID PO 02/15/25 22:00 02/16/25 10:37 25 MG objective Gen: NAD, AAOx3 HEENT: NC,AT Lungs: CTA b/l Cardiac:RRR Abd: soft, no distention Ext: + 1 edema Neuro: no focal deficits laboratory and microbiology Laboratory Tests 02/16/25 06:56 Test 02/16/25 06:56 Range/Units Serum Glucose 94 74-106 mg/dL Assessment/Plan Assessment: TOREY, pre-renal Nephrotic syndrome secondary to Membranous nephropathy CKD stage I (Baseline Cr ~ 1.0 mg/dl) new onset seizure, MRI consistent with PRES, this may have been induced by uncontrolled hypertension from recently started Tacrolimus Lactic acidosis, resolved Leukocytosis Hyperlipidemia Plan: Continue Bumex 2 mg PO daily DC'd Metolazone yesterday given improved edema Hold Tacrolimus. trough level is likely elevated give clinical presentation. f/u tacrolimus trough level with AM labs. however he didnt take it the past few days due to nausea/vomiting. but only took one dose this AM in the hospital. He will need alternative immunosuppression Continue Amlodipine 10 mg daily, and Metoprolol 25 mg PO BID Start Hydralazine 50 mg TID start aspirin for anticoagulation effect given hypoalbuminemia (Alb: 3.6 g/dl) Neurology consult Continue Lipitor on Empirical IV antibiotics per primary team Plan discussed with: Patient, Spouse, Son RUTH ANNMADIHA MD Feb 16, 2025 17:40
[2025-02-16] MEDS: hydrALAZINE HCL 25 MG TAB PO SCH (21:37)
[2025-02-16] MEDS: HYDROcodone-ACET 5/325MG TAB PO PRN (21:39)
[2025-02-17] VITALS (8 sets, daily range): BP systolic 108–152; BP diastolic 65–94; PULSE 54–75; RESP 17–19; TEMP 96.6–98.3; O2SAT 95–96
--- NOTE | 2025-02-17 00:19 | DVHEEG2 ---
Neurology EEG Procedural Note Procedural Note EXAM DATE: 02/16/2025 REFERRING DOCTOR: Dr. Vazquez TECHNIQUE: Eighteen channels of EEG, 2 channels of EOG, and 1 channel of EKG were recorded using the International 10/20 system. CLINICAL DATA: The patient was referred for an EEG evaluation for the evidence of seizure disorder. MEDICATIONS: See the chart BACKGROUND ACTIVITY: While the patient was awake, the background activity consisted of well regulated 8-9 Hz rhythmic waveforms, symmetrically distributed over both posterior quadrants and was reactive to eye opening. ACTIVATION: Hyperventilation: Not done Photic Stimulation: No photic convulsive response Sleep: Stage I IMPRESSION: This is a normal EEG. No focal, lateralized, or epileptiform features are noted. If clinically indicated to rule out a seizure disorder, recommend repeat EEG with sleep deprivation. The EKG channel showed a regular heart rate of 72/min. [place] [address] JOHAN VAZQUEZ MD Feb 17, 2025 00:19
--- NOTE | 2025-02-17 07:06 | DVHPN2 ---
Progress Note - Dictate Date Seen: Feb 17, 2025 Medical Necessity Reason Pt with a Central, PICC or Fol: No Subjective Patient is feeling a lot better, appetite has improved vital signs Vital Sign Date Time Temp Pulse Resp B/P (MAP) Pulse Ox O2 Delivery O2 Flow Rate FiO2 02/17/25 05:19 149/78 02/17/25 05:00 97.5 54 18 95 97.5 02/16/25 20:00 Room Air* 0 21 Total Intake and Output 02/16/25 02/16/25 02/17/25 15:00 23:00 07:00 Intake Total 1000 ml 1100 ml Balance 1000 ml 1100 ml medications Current Medications Medications Dose Ordered Sig/Violet Route Start Time Stop Time Status Last Admin Dose Admin Cefepime HCl 50 ml @ 12.5 mls/hr Q8HR IV 02/15/25 14:00 02/17/25 05:17 12.5 MLS/HR Acetaminophen/ Hydrocodone Bitart 1 tab Q4HP PRN PO 02/15/25 09:45 02/16/25 21:39 1 TAB Ondansetron HCl 4 mg Q4HP PRN IV 02/15/25 09:45 02/15/25 18:57 4 MG Docusate Sodium 100 mg BIDPRN PRN PO 02/15/25 09:45 Acetaminophen 650 mg Q6HP PRN PO 02/15/25 09:45 02/15/25 13:28 650 MG Nitroglycerin 0.4 mg Q5MINP PRN SL 02/15/25 09:45 Morphine Sulfate 2 mg Q30M PRN IV 02/15/25 09:45 Atorvastatin Calcium 20 mg HS PO 02/15/25 22:00 02/16/25 21:37 20 MG Prednisone 5 mg DAILY PO 02/15/25 10:00 02/16/25 10:37 5 MG Bumetanide 2 mg DAILY PO 02/16/25 10:00 02/16/25 10:36 2 MG Amlodipine Besylate 10 mg DAILY PO 02/15/25 10:00 02/16/25 10:37 10 MG Vancomycin HCl 0 ml @ 0 mls/hr UD IV 02/15/25 10:15 Metoclopramide HCl 10 mg Q8HPRN PRN IV 02/15/25 10:15 Lorazepam 1 mg ONCE PRN IV 02/15/25 10:30 Metoprolol Tartrate 25 mg BID PO 02/15/25 22:00 02/16/25 21:38 25 MG Hydralazine HCl 50 mg TID PO 02/16/25 22:00 02/17/25 05:19 50 MG Aspirin 81 mg DAILY PO 02/17/25 10:00 objective Gen: NAD, AAOx3 HEENT: NC,AT Lungs: CTA b/l Cardiac:RRR Abd: soft, no distention Ext: + 1 edema Neuro: no focal deficits laboratory and microbiology Laboratory Tests 02/17/25 06:13 02/16/25 06:56 Test 02/16/25 06:56 Range/Units Serum Glucose 94 74-106 mg/dL Assessment/Plan Assessment: TOREY, possible ATN vs Tacrolimus toxicity Nephrotic syndrome secondary to Membranous nephropathy CKD stage I (Baseline Cr ~ 1.0 mg/dl) new onset seizure, MRI consistent with PRES, this may have been induced by uncontrolled hypertension from recently started Tacrolimus hypertension, much better controlled Lactic acidosis, resolved Leukocytosis Hyperlipidemia Plan: Continue Bumex 2 mg PO daily DC'd Metolazone given improved edema Hold Tacrolimus. trough level is likely elevated give clinical presentation. f/u tacrolimus trough level with AM labs. however he didnt take it the past few days due to nausea/vomiting. but only took one dose this AM in the hospital. He will need alternative immunosuppression will arrange Rituximab infusion q2 weeks x2 for management of membranous nephropathy. will avoid starting at this time due to possible triggering PRES obtain anti PLA2R antibody Continue Amlodipine 10 mg daily, and Metoprolol 25 mg PO BID Continue Hydralazine 50 mg TID continue aspirin for anticoagulation effect given hypoalbuminemia (Alb: 3.6 g/dl) Neurology consult Continue Lipitor on Empirical IV antibiotics per primary team Plan discussed with: Patient MADIHA VALLECILLO MD Feb 17, 2025 07:06
[2025-02-17] MEDS: ASPirin 81 mg TAB PO SCH (09:57)
[2025-02-17] MEDS: VANCOMYCIN 1.25GM/250ML 250 ML IV ONE (12:13)
--- NOTE | 2025-02-17 13:35 | DVHPN2 ---
Reviewed: Care Plan, H&P, Labs, Medications, Previous Orders Changes from previous H/P or p: No Changes General: Per HPI Eyes: No Pain, No Vision change, No Conjunctivae inflammation, No Eyelid inflammation, No Other, No Redness ENT: No Ear pain, No Ear discharge, No Nose pain, No Nose discharge, No Nose congestion, No Mouth pain, No Mouth swelling, No Throat pain, No Throat swelling, No Other Cardiovascular: No Chest Pain, No Palpitations, No Orthopnea, No Paroxysmal Noc. Dyspnea, No Edema, No Lt Headedness, No Other Respiratory: No Cough, No Dry, No Shortness of breath, No SOB with excertion, No Wheezing, No Hemoptysis, No Pleuritic Pain, No Sputum, No Other Gastrointestinal: No Nausea, No Vomiting, No Abdominal Pain, No Diarrhea, No Constipation, No Melena, No Hematochezia, No Other Genitourinary: No Dysuria, No Frequency, No Incontinence, No Hematuria, No Retention, No Other Musculoskeletal: No other, No neck pain, No shoulder pain, No arm pain, No back pain, No hand pain, No leg pain, No foot pain Skin: No Rash, No Lesions, No Jaundice, No Bruising, No Other Objective Vitals Vital Signs Date Time Temp Pulse Resp B/P (MAP) Pulse Ox O2 Delivery O2 Flow Rate FiO2 02/17/25 12:41 96.6 59 19 152/94 (113) 96 96.6 02/17/25 08:00 Room Air* 0 21 Intake/Output Intake and Output 02/17/25 07:00 Intake Total 2100 ml Balance 2100 ml Intake Oral 2100 ml # Voids 4 # Bowel Movements 1 Medications Current Medications Medications Dose Ordered Sig/Violet Route Start Time Stop Time Status Last Admin Dose Admin Cefepime HCl 50 ml @ 12.5 mls/hr Q8HR IV 02/15/25 14:00 02/17/25 05:17 12.5 MLS/HR Acetaminophen/ Hydrocodone Bitart 1 tab Q4HP PRN PO 02/15/25 09:45 02/16/25 21:39 1 TAB Ondansetron HCl 4 mg Q4HP PRN IV 02/15/25 09:45 02/15/25 18:57 4 MG Docusate Sodium 100 mg BIDPRN PRN PO 02/15/25 09:45 Acetaminophen 650 mg Q6HP PRN PO 02/15/25 09:45 02/15/25 13:28 650 MG Nitroglycerin 0.4 mg Q5MINP PRN SL 02/15/25 09:45 Morphine Sulfate 2 mg Q30M PRN IV 02/15/25 09:45 Atorvastatin Calcium 20 mg HS PO 02/15/25 22:00 02/16/25 21:37 20 MG Prednisone 5 mg DAILY PO 02/15/25 10:00 02/17/25 10:00 5 MG Bumetanide 2 mg DAILY PO 02/16/25 10:00 02/17/25 10:00 2 MG Amlodipine Besylate 10 mg DAILY PO 02/15/25 10:00 02/17/25 09:59 10 MG Vancomycin HCl 0 ml @ 0 mls/hr UD IV 02/15/25 10:15 Metoclopramide HCl 10 mg Q8HPRN PRN IV 02/15/25 10:15 Lorazepam 1 mg ONCE PRN IV 02/15/25 10:30 Metoprolol Tartrate 25 mg BID PO 02/15/25 22:00 02/16/25 21:38 25 MG Hydralazine HCl 50 mg TID PO 02/16/25 22:00 02/17/25 05:19 50 MG Aspirin 81 mg DAILY PO 02/17/25 10:00 02/17/25 09:57 81 MG Laboratory Results Laboratory Tests 02/16/25 06:56 02/17/25 06:13 Urinalysis Test 02/15/25 08:54 Urine Color Light-yellow (Yellow) Urine Clarity Clear (Clear) Urine pH 6.0 (5.0-9.0) Urine Specific [place] 1.025 (1.001-1.035) Urine Protein 3+ (Negative) H Urine Ketones Negative (Negative) Urine Blood 2+ /uL (Negative) H Urine Nitrite Negative (Negative) Urine Bilirubin Negative (Negative) Urine Urobilinogen Normal mg/dL (Negative) Urine Leukocyte Esterase Negative /uL (Negative) Urine RBC 3 /hpf (0 - 3) Urine Microscopic WBC 2 /HPF (0-3) Urine Squamous Epithelial Cells Few /hpf (<5) Urine Bacteria Few /hpf (None Seen) H Urine Hyaline Casts Few /lpf (0 - 2) Urine Mucus Few (None Seen) Urine Glucose Trace mg/dL (Normal) Microbiology Microbiology Date/Time Source Procedure Growth Status 02/15/25 05:28 Blood Blood Culture - Preliminary NO GROWTH AFTER 48 HOURS OF INCUBATION. Resulted Assessment/Plan Assessment/Plan Giovanni Oakley is a 49-year-old male with past medical history of membranous nephropathy, who was brought to the hospital by EMS after having a seizure. Per the patient's , she was awoken up about 0200 to him having a seizure in bed. He has no history of seizures. She states after the seizure was over he was confused, not able to speak correctly, and combative with EMS. At my time of assessment he is alert and oriented, and does not remember the event. He does have trauma to his tongue and some dried blood on the side of his mouth from the event. 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 He contributes it to his new medications. Patient's blood pressure is uncontrolled while in the ER. He states his blood pressure has never been a problem and he dose not take any medications for it at home, but he was told his new medications could make his blood pressure increase. Recently, the patient was seen at a urgent care due to right foot swelling. He was given an antibiotic, pain medications, and his prednisone was increased. The swelling, and redness in his foot has almost resolved, he has almost completed his course of medications. Denies any sick contact, chest pain, cough, fever, shortness of breath, or diarrhea. Sepsis, Seizure, new onset, Metabolic encephalopathy, Lactic acidosis, Hyperglycemia, Uncontrolled hypertension, membranous nephropathy Plan discussed with: Patient Date of Service: Feb 16, 2025 Billing Provider: FERNANDA ABBOTT DO Common Visit Codes: [id number] INP/OBS CARE(HIGH) FERNANDA ABBOTT DO Feb 17, 2025 13:35
--- NOTE | 2025-02-17 13:36 | DVHDS2 ---
Discharge Summary Date of Admission Feb 15, 2025 at 09:40 Date of Discharge: Feb 17, 2025 Labs/Diagnostic Data: Laboratory Results Test 02/17/25 06:13 02/16/25 06:56 02/15/25 10:32 02/15/25 08:54 Creatinine 1.72 mg/dL (0.700-1.30) Glomerular Filtration Rate Calc 48 mL/min (>90) Random Vancomycin Level 8.6 ug/mL (5-10) White Blood Count 8.6 10^3/uL (4.4-10.8) Red Blood Count 4.57 10^6/uL (4.5-5.90) Hemoglobin 13.8 g/dL (13.5-17.5) Hematocrit 39.5 % (41.0-53.0) Mean Corpuscular Volume 86.6 fL (80.0-100.0) Mean Corpuscular Hemoglobin 30.1 pg (28.0-32.0) Mean Corpuscular Hemoglobin Concent 34.8 g/dL (32.0-36.0) Red Cell Distribution Width 12.9 % (11.8-14.3) Platelet Count 276 10^3/uL (140-450) Mean Platelet Volume 7.0 fL (6.9-10.8) Neutrophils (%) (Auto) 67.6 % (37.0-80.0) Lymphocytes (%) (Auto) 20.5 % (10.0-50.0) Monocytes (%) (Auto) 9.9 % (0.0-12.0) Eosinophils (%) (Auto) 1.7 % (0.0-7.0) Basophils (%) (Auto) 0.3 % (0.0-2.0) Neutrophils # (Auto) 5.8 10 ^3/uL (1.6-8.6) Lymphocytes # (Auto) 1.8 10 ^3/uL (0.4-5.4) Monocytes # (Auto) 0.8 10 ^3/uL (0-1.3) Eosinophils # (Auto) 0.1 10 ^3/uL (0-0.8) Basophils # (Auto) 0 10 ^3/uL (0-0.2) Nucleated Red Blood Cells 0.1 % Sodium Level 143 mmol/L (136-145) Potassium Level 4.0 mmol/L (3.5-5.1) Chloride Level 108 mmol/L (98-107) Carbon Dioxide Level 26 mmol/L (20-31) Anion Gap 9 (5-15) Blood Urea Nitrogen 44 mg/dL (9-23) BUN/Creatinine Ratio 26.0 (10.0-20.0) Serum Glucose 94 mg/dL (74-106) Calcium Level 9.5 mg/dL (8.7-10.4) Total Bilirubin 0.4 mg/dL (0.2-1.0) Aspartate Amino Transferase (AST) 13 U/L (<34) Alanine Aminotransferase (ALT) 11 U/L (7-40) Alkaline Phosphatase 41 U/L (46-116) Total Protein 5.7 g/dL (5.7-8.2) Albumin 3.6 g/dL (3.2-4.8) Lactic Acid Level 1.8 mmol/L (0.4-2.0) Urine Color Light-yellow (Yellow) Urine Clarity Clear (Clear) Urine pH 6.0 (5.0-9.0) Urine Specific [place] 1.025 (1.001-1.035) Urine Protein 3+ (Negative) Urine Ketones Negative (Negative) Urine Blood 2+ /uL (Negative) Urine Nitrite Negative (Negative) Urine Bilirubin Negative (Negative) Urine Urobilinogen Normal mg/dL (Negative) Urine Leukocyte Esterase Negative /uL (Negative) Urine RBC 3 /hpf (0 - 3) Urine Microscopic WBC 2 /HPF (0-3) Urine Squamous Epithelial Cells Few /hpf (<5) Urine Bacteria Few /hpf (None Seen) Urine Hyaline Casts Few /lpf (0 - 2) Urine Mucus Few (None Seen) Urine Glucose Trace mg/dL (Normal) Test 02/15/25 08:47 02/15/25 05:10 POC Glucose 123 mg/dl (70-106) Prothrombin Time 10.5 sec (9.3-11.8) Prothrombin Time INR 0.99 (0.9-1.15) Activated Partial Thromboplast Time 25.6 SEC (24.5-34.5) Hemoglobin A1c 5.5 % A1C (<5.7) B-Type Natriuretic Peptide 133.67 pg/mL (0-100) Other Laboratory Tests 02/17/25 06:13 02/16/25 06:56 Brief Hx & Hospital Course: Giovanni Oakley is a 49-year-old male with past medical history of membranous nephropathy, who was brought to the hospital by EMS after having a seizure. Per the patient's , she was awoken up about 0200 to him having a seizure in bed. He has no history of seizures. She states after the seizure was over he was confused, not able to speak correctly, and combative with EMS. At my time of assessment he is alert and oriented, and does not remember the event. He does have trauma to his tongue and some dried blood on the side of his mouth from the event. 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 He contributes it to his new medications. Patient's blood pressure is uncontrolled while in the ER. He states his blood pressure has never been a problem and he dose not take any medications for it at home, but he was told his new medications could make his blood pressure increase. Recently, the patient was seen at a urgent care due to right foot swelling. He was given an antibiotic, pain medications, and his prednisone was increased. The swelling, and redness in his foot has almost resolved, he has almost completed his course of medications. Denies any sick contact, chest pain, cough, fever, shortness of breath, or diarrhea. Sepsis, Seizure, new onset, Metabolic encephalopathy, Lactic acidosis, Hyperglycemia, Uncontrolled hypertension, membranous nephropathy discharged to home Condition at Discharge: Fair Final Diagnosis/Problems List see above Discharge Disposition: Home Discharge Statement: "Patient was advised to return to the ER or call 911 if any headaches, dizziness, shortness of breath, chest pain, abdominal pain, bleeding, fevers, or worsening of medical condition. Patient was counseled about treatment plan, medications, possible side effects, patientverbalized understanding. All questions were answered to the best of my ability. This discharge took greater then 30 minutes in planning, reviewing documentation, counseling the patient, and discussing with other team members." ASSESSMENT ASSESSMENT Assessment Date of Service: Feb 17, 2025 Billing Provider: FERNANDA ABBOTT DO Common Visit Codes: [id number] DISCH DAY >30min FERNANDA ABBOTT DO Feb 17, 2025 13:36
--- NOTE | 2025-02-17 23:27 | DVHPN2 ---
Progress Note - Dictate Date Seen: Feb 17, 2025 Medical Necessity Reason Pt with a Central, PICC or Fol: No Subjective Mr. Encarnacion is a 49 years old left-handed gentleman with a history of chronic kidney failure, obesity, he was brought to the [facility] on 02/15/2025 with a chief company of seizure activity. I have seen and examined the patient, I have talked to his nurse, he is doing fine, only complaints, he did not want to use CPAP in the hospital He has noticed sleeping with elevated bed head helped his sleep, and he is interested in using it at home We also I have spent time discussing about his seizure, the possible triggering factors of his seizure disorder, we have discussed about driving restriction I had advised him that the preventive seizure treatment is not indicated at this time WBC/HB/PLT/MCV, 02/15/2025: 15.3/16.2/351/86.6 BUN/CR, 02/15/2025: 46/1.58 Liver function tests, 02/15/2025: Unremarkable Lactic acid, 02/15/2025: 4.9, 2.9, EEG, 02/16/2025: Normal CT head, 02/15/2025: No acute intracranial hemorrhage, midline shift or mass effect. If symptoms persist, further evaluation with MRI is recommended. MR headache, 02/15/2025: Increased T2 and FLAIR signal within the bilateral posterior parietal , occipital lobes which is likely secondary toPRES/ posterior reversible encephalopathy syndrome. Other considerations include venous sinus thromboses, ischemia, other inflammatory/ infectious etiologies vital signs Vital Sign Date Time Temp Pulse Resp B/P (MAP) Pulse Ox O2 Delivery O2 Flow Rate FiO2 02/17/25 21:00 98.3 72 17 134/73 (93) 95 98.3 02/17/25 20:00 Room Air* 0 21 Total Intake and Output 02/16/25 02/16/25 02/17/25 15:00 23:00 07:00 Intake Total 1000 ml 1100 ml Balance 1000 ml 1100 ml medications Current Medications Medications Dose Ordered Sig/Violet Route Start Time Stop Time Status Last Admin Dose Admin Cefepime HCl 50 ml @ 12.5 mls/hr Q8HR IV 02/15/25 14:00 02/17/25 20:51 12.5 MLS/HR Acetaminophen/ Hydrocodone Bitart 1 tab Q4HP PRN PO 02/15/25 09:45 02/16/25 21:39 1 TAB Ondansetron HCl 4 mg Q4HP PRN IV 02/15/25 09:45 02/15/25 18:57 4 MG Docusate Sodium 100 mg BIDPRN PRN PO 02/15/25 09:45 Acetaminophen 650 mg Q6HP PRN PO 02/15/25 09:45 02/15/25 13:28 650 MG Nitroglycerin 0.4 mg Q5MINP PRN SL 02/15/25 09:45 Morphine Sulfate 2 mg Q30M PRN IV 02/15/25 09:45 Atorvastatin Calcium 20 mg HS PO 02/15/25 22:00 02/17/25 20:49 20 MG Prednisone 5 mg DAILY PO 02/15/25 10:00 02/17/25 10:00 5 MG Bumetanide 2 mg DAILY PO 02/16/25 10:00 02/17/25 10:00 2 MG Amlodipine Besylate 10 mg DAILY PO 02/15/25 10:00 02/17/25 09:59 10 MG Vancomycin HCl 0 ml @ 0 mls/hr UD IV 02/15/25 10:15 Metoclopramide HCl 10 mg Q8HPRN PRN IV 02/15/25 10:15 Lorazepam 1 mg ONCE PRN IV 02/15/25 10:30 Metoprolol Tartrate 25 mg BID PO 02/15/25 22:00 02/17/25 20:49 25 MG Hydralazine HCl 50 mg TID PO 02/16/25 22:00 02/17/25 20:49 50 MG Aspirin 81 mg DAILY PO 02/17/25 10:00 02/17/25 09:57 81 MG objective General: the patient is well developed and nourished. No acute distress. MENTAL STATUS: Awake and alert. Oriented to person, place, time and general circumstances. Able to give personal history. SPEECH, LANGUAGE, HIGHER CORTICAL FUNCTION: no aphasia or dysathria. CRANIAL NERVES: Pupils are equal, round and reactive. EOMs full and conjugate. No nystagmus. Facial sensation intact in all three divisions bilaterally. Mandibular strength intact. Facial muscles symmetrical and strength intact. SENSATION: Sensation to touch and pinprick is normal. MOTOR: Normal tone in the upper and lower extremity. Normal muscle bulk. No fasciculations. No abnormal movements or posturing. Muscle strength of the major groups in the extremities is 5/5. REFLEXES: Deep tendon reflexes normal and symmetrical. No pathological reflexes. CEREBELLAR/COORDINATION: Finger to noseis normal bilaterally. GAIT/STATION: deferred. laboratory and microbiology Laboratory Tests 02/17/25 06:13 02/16/25 06:56 Test 02/16/25 06:56 Range/Units Serum Glucose 94 74-106 mg/dL Problem List New onset generalized tonic-clonic seizure Secondary to hypertensive encephalopathy ? Secondary to nausea, vomiting/dehydration Obesity Sleep-related breathing disorder Hypertension emergency Posterior reversible encephalopathy Assessment/Plan Monitoring Supportive treatment Telemetry Ativan for seizure breakthrough Consider preventive seizure treatment if indicated later A trial of APAP in the hospital Weight control Further address his sleep-related breathing disorder as outpatient Has been advised not to drive and he is cleared DMV report in the chart This medical document was created using an electronic medical record system with [employer] computerized dictation system. Although this document has been carefully reviewed, there may still be some phonetic and typographical errors. These areas are purely typographical due to imperfections of the software programs, and do not reflect any compromise in the patient's medical care. Prognosis poor Plan discussed with: Patient, Other Total Time (mins): 35 JOHAN VAZQUEZ MD Feb 17, 2025 23:27
[2025-02-18 01:00] VITALS: BP 123/64; PULSE 60; RESP 16; TEMP 98.1; O2SAT 93
[2025-02-18 05:00] VITALS: BP 124/59; PULSE 58; RESP 16; TEMP 97.9; O2SAT 93
[2025-02-18 08:00] VITALS: PULSE 61
[2025-02-18 09:00] VITALS: BP 132/67; PULSE 67; RESP 20; TEMP 98.1; O2SAT 97
[2025-02-18 13:04] VITALS: BP 147/82; PULSE 65; RESP 20; TEMP 97.5; O2SAT 95
--- NOTE | 2025-02-18 14:07 | DVHPN2 ---
Progress Note - Dictate Date Seen: Feb 18, 2025 Medical Necessity Reason Pt with a Central, PICC or Fol: No Subjective no symptoms better BP control vital signs Vital Sign Date Time Temp Pulse Resp B/P (MAP) Pulse Ox O2 Delivery O2 Flow Rate FiO2 02/18/25 13:04 97.5 65 20 147/82 (103) 95 97.5 02/18/25 08:00 Room Air* 0 21 Total Intake and Output 02/17/25 02/17/25 02/18/25 15:00 23:00 07:00 Intake Total 300 ml 600 ml 1200 ml Balance 300 ml 600 ml 1200 ml medications Current Medications Medications Dose Ordered Sig/Violet Route Start Time Stop Time Status Last Admin Dose Admin Cefepime HCl 50 ml @ 12.5 mls/hr Q8HR IV 02/15/25 14:00 02/18/25 06:04 12.5 MLS/HR Acetaminophen/ Hydrocodone Bitart 1 tab Q4HP PRN PO 02/15/25 09:45 02/16/25 21:39 1 TAB Ondansetron HCl 4 mg Q4HP PRN IV 02/15/25 09:45 02/15/25 18:57 4 MG Docusate Sodium 100 mg BIDPRN PRN PO 02/15/25 09:45 Acetaminophen 650 mg Q6HP PRN PO 02/15/25 09:45 02/15/25 13:28 650 MG Nitroglycerin 0.4 mg Q5MINP PRN SL 02/15/25 09:45 Morphine Sulfate 2 mg Q30M PRN IV 02/15/25 09:45 Atorvastatin Calcium 20 mg HS PO 02/15/25 22:00 02/17/25 20:49 20 MG Prednisone 5 mg DAILY PO 02/15/25 10:00 02/18/25 11:15 5 MG Bumetanide 2 mg DAILY PO 02/16/25 10:00 02/18/25 11:15 2 MG Amlodipine Besylate 10 mg DAILY PO 02/15/25 10:00 02/18/25 11:15 10 MG Vancomycin HCl 0 ml @ 0 mls/hr UD IV 02/15/25 10:15 Metoclopramide HCl 10 mg Q8HPRN PRN IV 02/15/25 10:15 Lorazepam 1 mg ONCE PRN IV 02/15/25 10:30 Metoprolol Tartrate 25 mg BID PO 02/15/25 22:00 02/18/25 11:16 25 MG Hydralazine HCl 50 mg TID PO 02/16/25 22:00 02/18/25 06:04 50 MG Aspirin 81 mg DAILY PO 02/17/25 10:00 02/18/25 11:14 81 MG objective Gen: NAD, AAOx3 HEENT: NC,AT Lungs: CTA b/l Cardiac:RRR Abd: soft, no distention Ext: + 1 edema Neuro: no focal deficits laboratory and microbiology Laboratory Tests 02/18/25 06:00 02/16/25 06:56 Test 02/16/25 06:56 Range/Units Serum Glucose 94 74-106 mg/dL Assessment/Plan Assessment: TOREY, possible ATN vs Tacrolimus toxicity : GFR improving Nephrotic syndrome secondary to Membranous nephropathy CKD stage I (Baseline Cr ~ 1.0 mg/dl) new onset seizure, MRI consistent with PRES, this may have been induced by uncontrolled hypertension from recently started Tacrolimus hypertension, much better controlled Lactic acidosis, resolved Leukocytosis Hyperlipidemia Plan: Continue Bumex 2 mg PO daily DC'd Metolazone given improved edema Hold Tacrolimus. trough level is likely elevated give clinical presentation. f/u tacrolimus trough level with AM labs. however he didnt take it the past few days due to nausea/vomiting. but only took one dose this AM in the hospital. He will need alternative immunosuppression will arrange Rituximab infusion 1 g q2 weeks x2 for management of membranous nephropathy. will avoid starting at this time due to possible triggering PRES obtain anti PLA2R antibody Continue Amlodipine 10 mg daily, and Metoprolol 25 mg PO BID Continue Hydralazine 50 mg TID Will need to add RAAS inhibitors once GFR stable continue aspirin for anticoagulation effect given hypoalbuminemia (Alb: 3.6 g/dl) Neurology consult Continue Lipitor on Empirical IV antibiotics per primary team Plan discussed with: Patient MADIHA VALLECILLO MD Feb 18, 2025 14:07
[2025-02-18] MEDS ORDERED: VANCOMYCIN 1GM/250ML KIT 250 ML IV ONE (15:15)
[2025-02-18] MEDS ORDERED: VANCOMYCIN 1GM/200ML PM 250 ML IV ONE (15:45)
[2025-02-18] MEDS ORDERED: VANCOMYCIN 1GM/200ML PM 200 ML IV ONE (15:45)
[2025-02-18 17:07] VITALS: BP 141/76; PULSE 66; RESP 19; TEMP 97.5; O2SAT 96
--- NOTE | 2025-02-18 18:48 | DVHPN2 ---
Reviewed: Care Plan, H&P, Labs, Medications Changes from previous H/P or p: No Changes General: Per HPI Eyes: No Pain, No Vision change, No Conjunctivae inflammation, No Eyelid inflammation, No Other, No Redness ENT: No Ear pain, No Ear discharge, No Nose pain, No Nose discharge, No Nose congestion, No Mouth pain, No Mouth swelling, No Throat pain, No Throat swelling, No Other Cardiovascular: No Chest Pain, No Palpitations, No Orthopnea, No Paroxysmal Noc. Dyspnea, No Edema, No Lt Headedness, No Other Respiratory: No Cough, No Dry, No Shortness of breath, No SOB with excertion, No Wheezing, No Hemoptysis, No Pleuritic Pain, No Sputum, No Other Gastrointestinal: No Nausea, No Vomiting, No Abdominal Pain, No Diarrhea, No Constipation, No Melena, No Hematochezia, No Other Genitourinary: No Dysuria, No Frequency, No Incontinence, No Hematuria, No Retention, No Other Musculoskeletal: No other, No neck pain, No shoulder pain, No arm pain, No back pain, No hand pain, No leg pain, No foot pain Skin: No Rash, No Lesions, No Jaundice, No Bruising, No Other Objective Vitals Vital Signs Date Time Temp Pulse Resp B/P (MAP) Pulse Ox O2 Delivery O2 Flow Rate FiO2 02/18/25 17:07 97.5 66 19 141/76 (97) 96 97.5 02/18/25 08:00 Room Air* 0 21 Intake/Output Intake and Output 02/18/25 07:00 Intake Total 2100 ml Balance 2100 ml Intake Oral 1800 ml IV Total 300 ml # Voids 8 General Appearance: Alert, Oriented X3, Cooperative Abdomen: Normal bowel sounds, Soft Neuro: Normal gait, Normal speech Medications Current Medications Medications Dose Ordered Sig/Violet Route Start Time Stop Time Status Last Admin Dose Admin Cefepime HCl 50 ml @ 12.5 mls/hr Q8HR IV 02/15/25 14:00 02/18/25 15:31 12.5 MLS/HR Acetaminophen/ Hydrocodone Bitart 1 tab Q4HP PRN PO 02/15/25 09:45 02/16/25 21:39 1 TAB Ondansetron HCl 4 mg Q4HP PRN IV 02/15/25 09:45 02/15/25 18:57 4 MG Docusate Sodium 100 mg BIDPRN PRN PO 02/15/25 09:45 Acetaminophen 650 mg Q6HP PRN PO 02/15/25 09:45 02/15/25 13:28 650 MG Nitroglycerin 0.4 mg Q5MINP PRN SL 02/15/25 09:45 Morphine Sulfate 2 mg Q30M PRN IV 02/15/25 09:45 Atorvastatin Calcium 20 mg HS PO 02/15/25 22:00 02/17/25 20:49 20 MG Prednisone 5 mg DAILY PO 02/15/25 10:00 02/18/25 11:15 5 MG Bumetanide 2 mg DAILY PO 02/16/25 10:00 02/18/25 11:15 2 MG Amlodipine Besylate 10 mg DAILY PO 02/15/25 10:00 02/18/25 11:15 10 MG Vancomycin HCl 0 ml @ 0 mls/hr UD IV 02/15/25 10:15 Metoclopramide HCl 10 mg Q8HPRN PRN IV 02/15/25 10:15 Lorazepam 1 mg ONCE PRN IV 02/15/25 10:30 Metoprolol Tartrate 25 mg BID PO 02/15/25 22:00 02/18/25 11:16 25 MG Hydralazine HCl 50 mg TID PO 02/16/25 22:00 02/18/25 15:31 50 MG Aspirin 81 mg DAILY PO 02/17/25 10:00 02/18/25 11:14 81 MG Laboratory Results Laboratory Tests 02/16/25 06:56 02/18/25 06:00 Urinalysis Test 02/15/25 08:54 Urine Color Light-yellow (Yellow) Urine Clarity Clear (Clear) Urine pH 6.0 (5.0-9.0) Urine Specific [place] 1.025 (1.001-1.035) Urine Protein 3+ (Negative) H Urine Ketones Negative (Negative) Urine Blood 2+ /uL (Negative) H Urine Nitrite Negative (Negative) Urine Bilirubin Negative (Negative) Urine Urobilinogen Normal mg/dL (Negative) Urine Leukocyte Esterase Negative /uL (Negative) Urine RBC 3 /hpf (0 - 3) Urine Microscopic WBC 2 /HPF (0-3) Urine Squamous Epithelial Cells Few /hpf (<5) Urine Bacteria Few /hpf (None Seen) H Urine Hyaline Casts Few /lpf (0 - 2) Urine Mucus Few (None Seen) Urine Glucose Trace mg/dL (Normal) Microbiology Microbiology Date/Time Source Procedure Growth Status 02/15/25 05:28 Blood Blood Culture - Preliminary NO GROWTH AFTER 72 HOURS OF INCUBATION. Resulted Labs and/or images reviewed: Labs reviewed by me, Image(s) reviewed by me Assessment/Plan Assessment/Plan Giovanni Oakley is a 49-year-old male with past medical history of membranous nephropathy, who was brought to the hospital by EMS after having a seizure. Per the patient's , she was awoken up about 0200 to him having a seizure in bed. He has no history of seizures. She states after the seizure was over he was confused, not able to speak correctly, and combative with EMS. At my time of assessment he is alert and oriented, and does not remember the event. He does have trauma to his tongue and some dried blood on the side of his mouth from the event. 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 He contributes it to his new medications. Patient's blood pressure is uncontrolled while in the ER. He states his blood pressure has never been a problem and he dose not take any medications for it at home, but he was told his new medications could make his blood pressure increase. Recently, the patient was seen at a urgent care due to right foot swelling. He was given an antibiotic, pain medications, and his prednisone was increased. The swelling, and redness in his foot has almost resolved, he has almost completed his course of medications. Denies any sick contact, chest pain, cough, fever, shortness of breath, or diarrhea. Plan discussed with: Patient Date of Service: Feb 18, 2025 Billing Provider: FERNANDA ABBOTT DO Common Visit Codes: [id number] INP/OBS CARE(HIGH) FERNANDA ABBOTT DO Feb 18, 2025 18:48
[2025-02-18] MEDS ORDERED: ASPI-325 PO (18:50)
[2025-02-18] MEDS ORDERED: AML5T PO (18:50)
[2025-02-18] MEDS ORDERED: CEPH250C PO (18:50)
[2025-02-18] MEDS ORDERED: MET25T PO (18:50)
== END 2025-02-18 20:27 | disposition home or self-care (01) | DRG 872 ==
LOC: ER 05:00 → EDBD 05:00 → OVERFLOW 09:40 → TELE-WESTW 18:39
PROVIDERS: ADMIT Internal Medicine; ATTEND Internal Medicine
PROC: 5A09357 Assistance with Respiratory Ventilation, Less than 24 Consecutive Hours, Continuous Positive Airway Pressure (ICD-10-PCS; principal; 2025-02-15)
DX: A41.9 Sepsis, unspecified organism (principal); E87.20 Acidosis, unspecified; Z68.42 Body mass index [BMI] 45.0-49.9, adult; I16.1 Hypertensive emergency; N17.9 Acute kidney failure, unspecified; G40.409 Other generalized epilepsy and epileptic syndromes, not intractable, without status epilepticus; E66.01 Morbid (severe) obesity due to excess calories; I12.9 Hypertensive chronic kidney disease with stage 1 through stage 4 chronic kidney disease, or unspecified chronic kidney disease; N18.1 Chronic kidney disease, stage 1; E78.5 Hyperlipidemia, unspecified; Z82.0 Family history of epilepsy and other diseases of the nervous system; T45.1X5A Adverse effect of antineoplastic and immunosuppressive drugs, initial encounter; E88.09 Other disorders of plasma-protein metabolism, not elsewhere classified; Y92.89 Other specified places as the place of occurrence of the external cause; R73.9 Hyperglycemia, unspecified
CPT/HCPCS: 36415; 70450; 70551; 71045; 80053; 80197; 80202; 81001; 82565; 82962; 83036; 83605; 83880; 85025; 85610; 85730; 87040; 93005; 94660; 95819; 96365; 96375; 99291; 99292; G0378; J2405; J7507